=== PATIENT | female | born 1970 | race Caucasian/White ===

== ENCOUNTER 2016-12-21 18:17 | Emergency (ER) | payer OTHER ==
[2016-12-21 18:42] VITALS: BMI 29.6
[2016-12-21] MEDS ORDERED: SODIUM CHLORIDE 1,000 ML IV STA (20:48)
[2016-12-21] MEDS ORDERED: PANTOPRAZOLE SODIUM 40 MG in SODIUM CHLORIDE 100 ML IVPB ONE (20:48)
[2016-12-21] MEDS ORDERED: ONDANSETRON 4 MG/2 ML VIAL IVPUSH ONE (20:48)
[2016-12-21] MEDS ORDERED: FAMOTIDINE 20 MG/50 ML IVPB 50 ML IVPB ONE ×2 (20:48→21:37)
[2016-12-21 21:03] LABS: URINE APPEARANCE TURBID; URINE BILIRUBIN NEGATIVE (NEGATIVE); URINE COLOR YELLOW; URINE GLUCOSE (UA) NEGATIVE (NEGATIVE); URINE KETONE NEGATIVE (NEGATIVE); URINE LEUK ESTERASE NEGATIVE (NEGATIVE); URINE NITRITE NEGATIVE (NEGATIVE); URINE PROTEIN NEGATIVE (NEGATIVE); URINE UROBILINOGEN NEGATIVE E.U./dl (0.2-1.0)
[2016-12-21 21:04] LABS: BASOPHIL 0.4 % (0-2.0); EOSINOPHIL 0.4 % (0-4.5); MCH 27.9 pg (25.7-33.7); MCHC 32.6 g/dl (32.0-36.0); MEAN CELL VOLUME 85.7 fl (80-96); MEAN PLT VOLUME 8.1 fl (7.5-11.1); NEUTROPHILS 65.3 % (42.8-82.8); PLATELET COUNT 318 K/MM3 (134-434); WHITE BLOOD COUNT 8.1 K/mm3 (4.0-10.0)
[2016-12-21 21:06] LABS: URINE BLOOD 1+ (NEGATIVE)
[2016-12-21 21:11] LABS: URINE BACTERIA RARE /hpf (NONE SEEN); URINE MUCUS MANY; URINE WBC 46 /hpf (3-5); YEAST MODERATE
[2016-12-21] MEDS ORDERED: PANTOPRAZOLE SODIUM 100 ML IVPB ONE (21:15)
[2016-12-21] MEDS ORDERED: ONDANSETRON 4 MG/2 ML VIAL ONE (21:15)
[2016-12-21 21:27] LABS: ALBUMIN 3.7 g/dl (3.4-5.0); AMYLASE 40 U/L (25-115); ANION GAP 6 (8-16); BILIRUBIN,TOTAL 0.6 mg/dL (0.2-1.0); CALCIUM 8.2 mg/dL (8.5-10.1); CO2 27 mmol/L (21-32); COCKROFT - GAULT 100.2405; GLUCOSE,RANDOM 118 mg/dL (74-106); SGOT/AST 24 U/L (15-37); SGPT/ALT 34 U/L (12-78)
[2016-12-21 21:31] LABS: ALK PHOS 68 U/L (45-117); TOT PROT 7.4 g/dl (6.4-8.2); TROPONIN I < 0.02 ng/ml (0.00-0.05)
--- NOTE | 2016-12-21 22:44 | PDOC ---
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 Patient denies fever, hematemesis, or recent alcohol use. LNMP: 4 weeks ago. Denies any other complaints at this time. Patient reports excessive Ibuprofen use for abd pain. Timing/Duration: reports: getting worse Quality: reports: moderate Abdominal Pain Onset Location: reports: epigastric Pain Radiation: reports: no radiation Activities at Onset: reports: no specific activity Past History - Travel Traveled outside of the country in the last 30 days: No Close contact w/someone who was outside of country & ill: No - Past Medical History Allergies/Adverse Reactions: Allergies Allergy/AdvReac Type Severity Reaction Status Date / Time Penicillins Allergy Rash Verified 12/21/16 18:39 Home Medications: Ambulatory Orders Diphenoxylate HCl/Atropine [Lomotil Tablet] 2 each PO QID PRN #8 tablet MDD 8 tabs 12/21/16 Famotidine [Pepcid -] 40 mg PO BID #14 tablet 12/21/16 Ondansetron [Zofran Odt -] 4 mg SL Q6H PRN #20 od.tablet 12/21/16 Oxycodone HCl/Acetaminophen [Oxycodone-Acetaminophen 5-325] 1 each PO Q6H PRN # 16 tablet MDD 4 tabs 12/21/16 Anemia: Yes Asthma: No GI Disorders: Yes (HERNIA, ACID REFLUX) Psychiatric Problems: Yes (ANXIETY.) - Reproductive History Is Patient Now?: No - Psycho/Social/Smoking Cessation Hx Anxiety: Yes Suicidal Ideation: No Smoking History: Never smoked Hx Alcohol Use: No Drug/Substance Use Hx: No Substance Use Type: None Abd/GI Specific PMHX - Complaint Specific PMHX Colitis: No Diverticulitis: No Gall Bladder Disease: No GERD: No Hepatitis: No Irritable Bowel Synd (IBS): No Pancreatitis: No GI Ulcer Disease: No Review of Systems - Review of Systems Able to Perform ROS?: Yes Is the patient limited Ukrainian proficient: No Constitutional: Yes: Chills. No: Fever Respiratory: No: Cough, Shortness of Breath, Stridor, Wheezing Cardiac (ROS): No: Chest Pain, Palpitations, Syncope, Chest Tightness ABD/GI: Yes: Diarrhea, Nausea, Poor Fluid Intake, Vomiting, Indigestion, Other ( Abdominal Pain). No: Constipated, Poor Appetite : No: Dysuria, Flank Pain, Hematuria Musculoskeletal: No: Back Pain Integumentary: No: Bruising, Erythema, Rash Neurological: No: Headache, Seizure, Dizziness All Other Systems: Reviewed and Negative *Physical Exam - Vital Signs Last Vital Signs Temp Pulse Resp BP Pulse Ox 98.5 F 84 19 128/78 97 12/21/16 18:39 12/21/16 18:39 12/21/16 18:39 12/21/16 18:39 12/21/16 18:39 - Physical Exam General Appearance: Yes: Nourished, Appropriately Dressed, Moderate Distress. No: Apparent Distress, Mild Distress, Severe Distress Neck: positive: Trachea midline, Supple. negative: Tender, Rigid, Lymphadenopathy (R), Lymphadenopathy (L) Respiratory/Chest: positive: Lungs Clear, Normal Breath Sounds. negative: Chest Tender, Respiratory Distress, Accessory Muscle Use, Labored Respiration, Rapid RR Cardiovascular: positive: Regular Rhythm, Regular Rate Gastrointestinal/Abdominal: positive: Tender (Epigastric region), Soft, Decreased BS, Guarding, Rebound, Tenderness. negative: Distended Musculoskeletal: positive: Normal Inspection. negative: CVA Tenderness, Vertebral Tenderness Extremity: positive: Normal Capillary Refill, Normal Inspection, Normal Range of Motion. negative: Pedal Edema, Swelling, Calf Tenderness, Erythema, Inflammation Integumentary: positive: Normal Color, Dry, Warm Neurologic: positive: infantry operations specialist II-XII NML intact, Fully Oriented, Alert, Normal Mood/ Affect, Normal Response, Motor Strength 12/23 ED Treatment Course - LABORATORY CBC & Chemistry Diagram: 12/21/16 20:40 12/21/16 20:40 - ADDITIONAL ORDERS Additional order review: Laboratory Results 12/21/16 12/21/16 20:55 20:40 Sodium 138 Potassium 4.5 Chloride 105 Carbon Dioxide 27 Anion Gap 6 L BUN 13 Creatinine 1.0 D Creat Clearance w eGFR > 60 Random Glucose 118 H Calcium 8.2 L Total Bilirubin 0.6 AST 24 D ALT 34 Alkaline Phosphatase 68 Creatine Kinase 252 H CK-MB (CK-2) < 1.000 Troponin I < 0.02 Total Protein 7.4 Albumin 3.7 Total Amylase 40 D Lipase 102 Urine Color Yellow Urine Appearance Turbid Urine pH 5.0 Ur Specific [place] Urine Protein Negative Urine Glucose (UA) Negative Urine Ketones Negative Urine Blood 1+ H Urine Nitrite Negative Urine Bilirubin Negative Urine Urobilinogen Negative Ur Leukocyte Esterase Negative Urine RBC None Urine WBC 46 Ur Epithelial Cells Few Urine Bacteria Rare Urine Mucus Many Urine Yeast Moderate Urine HCG, Qual Negative 12/21/16 20:40 RBC 4.86 MCV 85.7 MCHC 32.6 RDW 15.0 MPV 8.1 Neutrophils % 65.3 Lymphocytes % 23.9 Monocytes % 10.0 Eosinophils % 0.4 Basophils % 0.4 - RADIOLOGY Radiology Studies Ordered: Category Date Time Status CHEST PA & LAT [RAD] Stat Radiology 12/21/16 20:48 Ordered ABDOMEN US -LIMITED [US] Stat Ultrasound 12/21/16 20:48 Taken - Medications Given in the ED: ED Medications Discontinued Medications Generic Name Dose Route Start Last Admin Trade Name Freq PRN Reason Stop Dose Admin Pantoprazole Sodium 40 mg/ 100 mls @ 200 mls/hr 12/21/16 20:48 12/21/16 21:16 Sodium Chloride IVPB 12/21/16 21:17 200 mls/hr ONCE ONE Administration Famotidine/Sodium Chloride 50 mls @ 100 mls/hr 12/21/16 20:48 12/21/16 21:43 Pepcid 20 Mg Premixed Ivpb - IVPB 12/21/16 21:17 100 mls/hr ONCE ONE Administration Sodium Chloride 1,000 mls @ 1,000 mls/hr 12/21/16 20:48 12/21/16 21:15 Normal Saline - IV 12/21/16 21:47 1,000 mls/hr ASDIR STA Administration Ondansetron HCl 4 mg 12/21/16 20:48 12/21/16 21:16 Zofran Injection IVPUSH 12/21/16 20:49 4 mg ONCE ONE Administration *DC/Admit/Observation/Transfer Diagnosis at time of Disposition: Gastritis Qualifiers: Gastritis type: unspecified gastritis Chronicity: acute Gastritis bleeding: without bleeding Qualified Code(s): K29.00 - Acute gastritis without bleeding - Discharge Dispostion Disposition: HOME Condition at time of disposition: Improved Admit: No - Prescriptions Prescriptions: Diphenoxylate HCl/Atropine [Lomotil Tablet] 2 each PO QID PRN #8 tablet MDD 8 tabs PRN Reason: Diarrhea Oxycodone HCl/Acetaminophen [Oxycodone-Acetaminophen 5-325] 1 each PO Q6H PRN # 16 tablet MDD 4 tabs PRN Reason: Severe Pain Famotidine [Pepcid -] 40 mg PO BID #14 tablet Ondansetron [Zofran Odt -] 4 mg SL Q6H PRN #20 od.tablet PRN Reason: Nausea And/Or Vomiting - Referrals Referrals: Micheline Suarez MD [Primary Care Provider] - Leonid Knight MD [Staff Physician] - - Patient Instructions Printed Discharge Instructions: Gastritis (Alternative Therapy), DI for Gastritis Additional Instructions: FOLLOW UP WITH DR. KNIGHT (GASTROENTEROLOGY) THIS WEEK. CALL TO SCHEDULE APPOINTMENT. TAKE MEDICATIONS PRESCRIBED. DO NOT DRIVE, DRINK ALCOHOL, OR OPERATE HEAVY MACHINERY WHILE TAKING OXYCODONE. AVOID IBUPROFEN/MOTRIN, ALCOHOL , SPICY FOODS, CHOCOLATE. RETURN IF SYMPTOMS WORSEN OR ANY CONCERNS FOR FURTHER EVALUATION. Print Language: CZECH - Post Discharge Activity Work/School Note: Back to Work
[2016-12-21] MEDS ORDERED: DIPHENOXYLATE 2.5/ATROPINE.025 1 COMBO TABLET PO ONE (23:15)
[2016-12-21] MEDS ORDERED: DIPHENOXYLATE 2.5/ATROPINE.025 1 COMBO TABLET ONE (23:22)
[2016-12-21 23:31] VITALS: BP 123/82; PULSE 91; TEMP 98.2
== END 2016-12-21 23:33 | disposition home or self-care (01) ==
LOC: JER 18:17
PROC: 3E033GC Introduction of Other Therapeutic Substance into Peripheral Vein, Percutaneous Approach (ICD-10-PCS; principal; 2016-12-21)
PROC: 3E033GC Introduction of Other Therapeutic Substance into Peripheral Vein, Percutaneous Approach (ICD-10-PCS; 2016-12-21)
PROC: 3E033GC Introduction of Other Therapeutic Substance into Peripheral Vein, Percutaneous Approach (ICD-10-PCS; 2016-12-21)
DX: K29.00 Acute gastritis without bleeding (principal)
CPT/HCPCS: 36415; 71020-TC; 76705-TC; 80053; 81003; 81015; 82150; 82550; 82553; 83690; 84484; 84703; 85025; 96365; 96368; 96375; 99283-25

== ENCOUNTER 2017-05-03 20:28 | Emergency (ER) | payer OTHER ==
[2017-05-03 20:40] VITALS: BP 121/78; PULSE 73; TEMP 97.1; BMI 30.7
--- NOTE | 2017-05-03 21:14 | PDOC ---
History of Present Illness - General Chief Complaint: Laceration Stated Complaint: LACERATION Time Seen by Provider: 05/03/17 20:33 History Source: Patient Exam Limitations: No Limitations - History of Present Illness Initial Comments: 05/03/17 21:37 46-year-old female presents to the emergency department complaining of an abrasion to the left lateral temporal forehead after walking into a pole this afternoon. Patient states she was preoccupied looking towards her right when she walked into a pole, striking the left side of her face. She denies any loss of consciousness, headache, dizziness, lightheadedness, visual disturbance, neck /back pains. Patient only complains of pain to the left supra periorbital rim. Patient denies any other complaints. Unknown last tetanus. Occurred: reports: this evening Past History - Past Medical History Allergies/Adverse Reactions: Allergies Allergy/AdvReac Type Severity Reaction Status Date / Time Penicillins Allergy Rash Verified 05/03/17 20:38 Home Medications: Ambulatory Orders Diphenoxylate HCl/Atropine [Lomotil Tablet] 2 each PO QID PRN #8 tablet MDD 8 tabs 12/21/16 Famotidine [Pepcid -] 40 mg PO BID #14 tablet 12/21/16 Ondansetron [Zofran Odt -] 4 mg SL Q6H PRN #20 od.tablet 12/21/16 Oxycodone HCl/Acetaminophen [Oxycodone-Acetaminophen 5-325] 1 each PO Q6H PRN # 16 tablet MDD 4 tabs 12/21/16 Anemia: Yes Asthma: No GI Disorders: Yes (HERNIA, ACID REFLUX) Psychiatric Problems: Yes (ANXIETY.) - Psycho/Social/Smoking Cessation Hx Anxiety: Yes Suicidal Ideation: No Smoking History: Never smoked Have you smoked in the past 12 months: No Information on smoking cessation initiated: No Hx Alcohol Use: No Drug/Substance Use Hx: No Substance Use Type: None Trauma Specific PMHX - Complaint Specific PMHX Back Injury: Yes Review of Systems - Review of Systems Able to Perform ROS?: Yes Comments:: 05/03/17 21:38 CONSTITUTIONAL: Absent: fever, chills, diaphoresis, generalized weakness, malaise, loss of appetite HEENT: Absent: rhinorrhea, nasal congestion, throat pain, throat swelling, difficulty swallowing, mouth swelling, ear pain, eye pain, visual Changes CARDIOVASCULAR: Absent: chest pain, loss of consciousness, palpitations, irregular heart rate, peripheral edema RESPIRATORY: Absent: cough, shortness of breath, dyspnea with exertion, orthopnea, wheezing, stridor, hemoptysis GASTROINTESTINAL: Absent: abdominal pain, abdominal distension, nausea, vomiting, diarrhea, constipation, melena, hematochezia GENITOURINARY: Absent: dysuria, frequency, urgency, hesitancy, hematuria, flank pain, genital pain MUSCULOSKELETAL: Absent: myalgia, arthralgia, joint swelling SKIN: left facial abrasion Absent: rash, itching, pallor HEMATOLOGIC/IMMUNOLOGIC: Absent: easy bleeding, easy bruising, lymphadenopathy, frequent infections ENDOCRINE: Absent: unexplained weight gain, unexplained weight loss, heat intolerance, cold intolerance NEUROLOGIC: Absent: headache, focal weakness or paresthesias, dizziness, unsteady gait, seizure, mental status changes, bladder or bowel incontinence PSYCHIATRIC: Absent: anxiety, depression, suicidal or homicidal ideation, hallucinations. Is the patient limited Singaporean proficient: No *Physical Exam - Vital Signs Last Vital Signs Temp Pulse Resp BP Pulse Ox 97.1 F L 73 20 121/78 98 05/03/17 20:38 05/03/17 20:38 05/03/17 20:38 05/03/17 20:38 05/03/17 20:38 - Physical Exam Comments: 05/03/17 21:38 GENERAL: Well developed, well nourished. Awake and alert. No acute distress. HEENT: left supraorbital tenderness on palp/edema Normocephalic, atraumatic. PERRLA, EOMI. No conjunctival pallor. Sclera are non- icteric. Moist mucous membranes. Oropharynx is clear. NECK: Supple. Full ROM. No JVD. Carotid pulses 2+ and symmetric, without bruits. No thyromegaly. No lymphadenopathy. CARDIOVASCULAR: Regular rate and rhythm. No murmurs, rubs, or gallops. Distal pulses are 2+ and symmetric. PULMONARY: No evidence of respiratory distress. Lungs clear to auscultation bilaterally. No wheezing, rales or rhonchi. ABDOMINAL: Soft. Non-tender. Non-distended. No rebound or guarding. No organomegaly. Normoactive bowel sounds. MUSCULOSKELETAL Normal range of motion at all joints. No bony deformities or tenderness. No CVA tenderness. EXTREMITIES: No cyanosis. No clubbing. No edema. No calf tenderness. SKIN: superficial 2cm horizontal facial abrasion to left sided lat facial; 1cm lat from left eye Warm and dry. Normal capillary refill. No rashes. No jaundice. NEUROLOGICAL: Alert, awake, appropriate. Cranial nerves 2-12 intact. No deficits to light touch and temperature in face, upper extremities and lower extremities. No motor deficits in the in face, upper extremities and lower extremities. Normoreflexic in the upper and lower extremities. Normal speech. Toes are down- going bilaterally. Gait is normal without ataxia. PSYCHIATRIC: Cooperative. Good eye contact. Appropriate mood and affect. Left eye: 20/20 Right eye: 2030 B/L eyes: 20/20 ED Treatment Course - RADIOLOGY Radiograph Interpretation: 05/03/17 22:51 Left periorbital/supraorbital edema *DC/Admit/Observation/Transfer Diagnosis at time of Disposition: Abrasion Periorbital contusion of left eye Qualifiers: Encounter type: initial encounter Qualified Code(s): S05.12XA - Contusion of eyeball and orbital tissues, left eye, initial encounter - Discharge Dispostion Condition at time of disposition: Stable Admit: No - Referrals Referrals: Micheline Suarez MD [Primary Care Provider] - Sony Foley MD [Staff Physician] - - Patient Instructions Printed Discharge Instructions: DI for Contusion, DI for Abrasion Additional Instructions: Ice; 10 mins on alternating with 10 mins off for the next 48 hours Tylenol alternating with motrin as needed for pain Bactracin to the abrasion daily Follow up with your physician and or the plastic surgeon listed on your discharge/Dr. Foley. Return to the ER for severe/persistent/worsening symptoms - Post Discharge Activity Work/School Note: Back to Work
[2017-05-03] MEDS ORDERED: TETANUS AND DIPHTHERIA TOXOID 0.5 ML DISP.SYRIN IM ONE (21:38)
--- NOTE | 2017-05-03 22:50 | PDOC ---
*Physical Exam - Vital Signs Last Vital Signs Temp Pulse Resp BP Pulse Ox 97.1 F L 73 20 121/78 98 05/03/17 20:38 05/03/17 20:38 05/03/17 20:38 05/03/17 20:38 05/03/17 20:38 ED Treatment Course - ADDITIONAL ORDERS Additional order review: Laboratory Results 05/03/17 21:17 Urine HCG, Qual Negative - Medications Given in the ED: ED Medications Discontinued Medications Generic Name Dose Route Start Last Admin Trade Name Freq PRN Reason Stop Dose Admin Tetanus/Diphtheria Toxoids Adsorbed 0.5 ml 05/03/17 21:38 05/03/17 22:40 Decavac IM 05/03/17 21:39 0.5 ml .ONCE ONE Administration Medical Decision Making - Medical Decision Making 05/03/17 22:50 agree with care from JOSE F Lweis *DC/Admit/Observation/Transfer Diagnosis at time of Disposition: Abrasion Periorbital contusion of left eye Qualifiers: Encounter type: initial encounter Qualified Code(s): S05.12XA - Contusion of eyeball and orbital tissues, left eye, initial encounter - Discharge Dispostion Condition at time of disposition: Stable - Referrals Referrals: Sony Foley MD [Staff Physician] - Micheline Suarez MD [Primary Care Provider] - - Patient Instructions Printed Discharge Instructions: DI for Contusion, DI for Abrasion Additional Instructions: Ice; 10 mins on alternating with 10 mins off for the next 48 hours Tylenol alternating with motrin as needed for pain Bactracin to the abrasion daily Follow up with your physician and or the plastic surgeon listed on your discharge/Dr. Foley. Return to the ER for severe/persistent/worsening symptoms - Post Discharge Activity
[2017-05-03] MEDS ORDERED: IBUPROFEN 400 MG TABLET (FP) PO ONE ×2 (22:56→22:58)
== END 2017-05-03 23:06 | disposition home or self-care (01) ==
LOC: JER 20:28
PROC: 3E0234Z Introduction of Serum, Toxoid and Vaccine into Muscle, Percutaneous Approach (ICD-10-PCS; principal; 2017-05-03)
DX: S05.12XA Contusion of eyeball and orbital tissues, left eye, initial encounter (principal); S00.211A Abrasion of right eyelid and periocular area, initial encounter; W22.09XA Striking against other stationary object, initial encounter; Y93.01 Activity, walking, marching and hiking; Y92.89 Other specified places as the place of occurrence of the external cause; Y99.8 Other external cause status
CPT/HCPCS: 70480-TC; 84703; 99282-25

== ENCOUNTER 2019-03-28 14:37 | Emergency (ER) | payer OTHER ==
[2019-03-28 14:44] VITALS: BP 127/78; PULSE 76; BMI 29.0
--- NOTE | 2019-03-28 14:46 | PDOC ---
Rapid Medical Evaluation Time Seen by Provider: 03/28/19 14:42 Medical Evaluation: Allergies Allergy/AdvReac Type Severity Reaction Status Date / Time Penicillins Allergy Rash Verified 03/28/19 14:39 03/28/19 14:42 Pt presents to the ER with PMH of blindness with two days of experiencing " sharp pains" to the L side of her head. She states that it is not a headache. States that the pain comes suddenly, lasts approximately one minute and then disappears. Exam: no gross neuro deficits, NAD Orders: labs, urine Pt to proceed to the ER for further evaluation Discharge Disposition - Diagnosis Head pain - Referrals - Patient Instructions - Post Discharge Activity
[2019-03-28 14:50] VITALS: TEMP 98
[2019-03-28 16:54] LABS: BASO % 0.4 % (0-2.0); EOS % 0.6 % (0-4.5); HEMATOCRIT 39.8 % (32.4-45.2); HEMOGLOBIN 13.2 GM/dL (10.7-15.3); LYMPH % 37.1 % (8-40); MCH 28.8 pg (25.7-33.7); MCHC 33.1 g/dl (32.0-36.0); MEAN CELL VOLUME 87.1 fl (80-96); MEAN PLT VOLUME 8.3 fl (7.5-11.1); MONO % 10.2 % (3.8-10.2); NEUT % 51.7 % (42.8-82.8); PLATELET COUNT 271 K/MM3 (134-434); RBC 4.57 M/mm3 (3.60-5.2)
[2019-03-28 16:59] LABS: PH,URINE 5.5 (5.0-8.0); URINE APPEARANCE CLEAR; URINE BILIRUBIN NEGATIVE (NEGATIVE); URINE COLOR YELLOW; URINE GLUCOSE (UA) NEGATIVE (NEGATIVE); URINE KETONE NEGATIVE (NEGATIVE); URINE LEUK ESTERASE NEGATIVE (NEGATIVE); URINE NITRITE NEGATIVE (NEGATIVE); URINE PROTEIN NEGATIVE (NEGATIVE); URINE UROBILINOGEN 0.2 mg/dL (0.2-1.0)
--- NOTE | 2019-03-28 17:08 | PDOC ---
History of Present Illness - General Chief Complaint: Headache Stated Complaint: HEADACHE Time Seen by Provider: 03/28/19 14:42 - History of Present Illness Initial Comments: 03/28/19 17:04 CHIEF COMPLAINT: head/neck pain HISTORY OF PRESENT ILLNESS: 48 yo F with hx of legal blindness, migraines, and chronic neck/back pain presents to ED with radiating neck and head pain x 2 days. Patient states the pain began when she was working at her register as a cashier office and felt a sharp pain radiating from her neck to top of her head on L side. She reports an extensive hx of migraines and states this pain is different from her migraines. She states the pain is intermittent and is describes it as a shooting pain. Patient and sister mention that she has had chronic pain to L neck x "months." Patient has seen orthopedics in the past for her neck but does not believe a CT or MRI has been done. Tavon has not taken any medication for VALENZUELA or neck pain in the past. Orthopedic had given her painkillers but "I think they " so she has not taken anything for pain. No recent travel or sick contacts. PAST MEDICAL HISTORY: Denies past medical history FAMILY HISTORY: Denies Denies tobacco, alcohol, illicit drug use. SURGICAL HISTORY: Denies ALLERGIES: cyclobenzaprine, PCN REVIEW OF SYSTEMS General/Constitutional: Denies fever or chills. Denies weakness, weight change. HEENT: Denies change in vision. Denies ear pain or discharge. Denies sore throat. Cardiovascular: Denies chest pain or shortness of breath. Respiratory: Denies cough, wheezing, or hemoptysis. Gastrointestinal: Denies nausea, vomiting, diarrhea or constipation. Denies rectal bleeding. Genitourinary: Denies dysuria, frequency, or change in urination. Musculoskeletal: Chronic neck and back pain. Denies joint or muscle swelling or pain. Skin and breasts: Denies rash or easy bruising. Neurologic: Shooting L sided headache. Denies vertigo, loss of consciousness, or loss of sensation. PHYSICAL EXAM General Appearance: Well-appearing, appropriately dressed. No apparent distress. HEENT: EOMI, PERRLA, normal ENT inspection, normal voice, TMs normal, pharynx normal. No conjunctival pallor. No photophobia, scleral icterus. Neck: Supple. Trachea midline. No tenderness, rigidity, carotid bruit, stridor , lymphadenopathy, or thyromegaly. Respiratory/Chest: Lungs CTAB. No shortness of breath, chest tenderness, respiratory distress, accessory muscle use. No crackles, rales, rhonchi, stridor , wheezing, dullness Cardiovascular: RRR. S1, S2. No JVD, murmur, bradycardia, tachycardia. Vascular Pulses: Dorsalis-Pedis (R): 2+, Dorsalis-Pedis (L): 2+ Gastrointestinal/Abdominal: Normal bowel sounds. Abdomen soft, non-distended. No tenderness or rebound tenderness. No organomegaly, pulsatile mass, guarding , hernia, hepatomegaly, splenomegaly. Lymphatic: No adenopathy, tenderness. Musculoskeletal/Extremities: Normal inspection. FROM of all extremities, normal capillary refill. Pelvis Stable. No CVA tenderness. No tenderness to extremities, pedal edema, swelling, erythema or deformity. Integumentary: Appropriate color, dry, warm. No cyanosis, erythema, jaundice or rash Neurologic: assembler molded frames II-XII intact. Fully oriented, alert. Appropriate mood/affect. Motor strength 5/5. No appreciable EOM palsy, facial droop or sensory deficit. Past History - Past Medical History Allergies/Adverse Reactions: Allergies Allergy/AdvReac Type Severity Reaction Status Date / Time Penicillins Allergy Rash Verified 03/28/19 14:39 Home Medications: Ambulatory Orders NK [No Known Home Medication] 05/03/17 Anemia: Yes Asthma: No COPD: No Diabetes: Yes GI Disorders: Yes (HERNIA, ACID REFLUX) Psychiatric Problems: Yes (ANXIETY.) Other medical history: legally blind in both eyes - Suicide/Smoking/Psychosocial Hx Smoking History: Never smoked Have you smoked in the past 12 months: No Hx Alcohol Use: Yes (occasionally) Drug/Substance Use Hx: No Substance Use Type: None *Physical Exam - Vital Signs Last Vital Signs Temp Pulse Resp BP Pulse Ox 98 F 76 18 127/78 100 03/28/19 14:39 03/28/19 14:39 03/28/19 14:39 03/28/19 14:39 03/28/19 14:39 ED Treatment Course - LABORATORY CBC & Chemistry Diagram: 03/28/19 16:45 03/28/19 16:45 - ADDITIONAL ORDERS Additional order review: Laboratory Results 03/28/19 03/28/19 16:45 16:45 Urine Color Yellow Urine Appearance Clear Urine pH 5.5 Ur Specific [place] 1.013 Urine Protein Negative Urine Glucose (UA) Negative Urine Ketones Negative Urine Blood Negative Urine Nitrite Negative Urine Bilirubin Negative Urine Urobilinogen 0.2 Ur Leukocyte Esterase Negative Urine HCG, Qual Negative 03/28/19 16:45 RBC 4.57 MCV 87.1 MCHC 33.1 RDW 14.0 MPV 8.3 Neutrophils % 51.7 D Lymphocytes % 37.1 D Monocytes % 10.2 Eosinophils % 0.6 Basophils % 0.4 Medical Decision Making - Medical Decision Making 03/28/19 19:20 48 yo F with hx of legal blindness, migraines, and chronic neck/back pain presents to ED with radiating neck and head pain x 2 days. -labs -head/neck CT C-spine CT indicates marked right and mild left facet hypertrophy at C2-C3, moderate left facet hypertrophy at C3-C4, mild right facet hypertrophy at C4-C5 , mild b/l facet hypertrophy at C5-C6 level. C5-C6 mild central disc bulge without gross impingement. Pt allergic to cyclobenzaprine - reports anaphylactic reaction. -tinazidine *DC/Admit/Observation/Transfer Diagnosis at time of Disposition: Facet hypertrophy of cervical region, Bulging of cervical intervertebral disc - Discharge Dispostion Disposition: HOME Condition at time of disposition: Stable Decision to Admit order: No - Referrals Referrals: Joe Juarez MD [Staff Physician] - Italo Mejia DO [Staff Physician] - Orville Barnes MD [Staff Physician] - - Patient Instructions Printed Discharge Instructions: DI for Cervical Radiculopathy, DI for Neck Pain Additional Instructions: Please follow up with orthopedics and neurology for continued management of your neck and head pain. If you develop any worsening headache, difficulty speaking or walking, new neck pain, or any new or worsening symptoms, please return to the ER immediately. - Post Discharge Activity
[2019-03-28 17:23] LABS: ALBUMIN 3.7 g/dl (3.4-5.0); BILIRUBIN,TOTAL 0.7 mg/dL (0.2-1); BLOOD UREA NITROGEN 14.6 mg/dL (7-18); CALCIUM 9.3 mg/dL (8.5-10.1); CREATININE 0.9 mg/dL (0.55-1.3); POTASSIUM 4.6 mmol/L (3.5-5.1); TOT PROT 7.2 g/dl (6.4-8.2)
[2019-03-28] MEDS ORDERED: TIZANIDINE HCL 2 MG TABLET PO ONE (19:24)
[2019-03-28] MEDS ORDERED: diphenhydrAMINE HCL 25 MG CAPSULE (FP) PO ONE ×2 (19:25→19:30)
== END 2019-03-28 20:35 | disposition home or self-care (01) ==
LOC: JER 14:37
DX: R51 Headache (principal); G89.29 Other chronic pain; F41.9 Anxiety disorder, unspecified; H54.8 Legal blindness, as defined in USA; K21.9 Gastro-esophageal reflux disease without esophagitis; E11.9 Type 2 diabetes mellitus without complications
CPT/HCPCS: 36415; 70450-TC; 72125-TC; 80053; 81003; 84703; 85025; 99282-25

== ENCOUNTER 2023-05-26 23:17 | Emergency (ER) | payer OTHER ==
[2023-05-26 23:39] VITALS: BP 128/77; PULSE 56; RESP 20; TEMP 97.8; BMI 25.5
[2023-05-27] MEDS ORDERED: ACETAMINOPHEN 1000 MG/100 ML BAG IVPB ONE (00:17)
[2023-05-27] MEDS ORDERED: ACETAMINOPHEN INJECTION 100 ML IVPB ONE (00:29)
[2023-05-27 00:33] LABS: BASO % 0.6 % (0-2.0); EOS % 1.2 % (0-4.5); HEMATOCRIT 35.6 % (32.4-45.2); HEMOGLOBIN 12.2 GM/dL (10.7-15.3); LYMPH % 36.1 % (8-40); MCH 28.8 pg (25.7-33.7); MCHC 34.1 g/dl (32.0-36.0); MEAN CELL VOLUME 84.4 fl (80-96); MEAN PLT VOLUME 7.8 fl (7.5-11.1); MONO % 9.3 % (3.8-10.2); NEUT % 52.8 % (42.8-82.8); PLATELET COUNT 260 10^3/uL (134-434); RBC 4.22 M/mm3 (3.60-5.2); RDW 14.3 % (11.6-15.6); WHITE BLOOD COUNT 8.2 K/mm3 (4.0-10.0)
[2023-05-27 00:41] LABS: INR 0.91 (0.83-1.09); PROTHROMBIN TIME (PATIENT) 10.6 SEC (9.7-13.0)
[2023-05-27 00:43] LABS: ACTIVATED PTT 32.2 SECONDS (25.2-36.5)
[2023-05-27 01:08] LABS: POTASSIUM 4.1 mmol/L (3.5-5.1)
[2023-05-27 01:10] LABS: BLOOD UREA NITROGEN 22.6 mg/dL (7-18); CALCIUM 8.4 mg/dL (8.5-10.1)
[2023-05-27 01:11] LABS: ALBUMIN 3.2 g/dl (3.4-5.0)
[2023-05-27 01:14] LABS: CREATININE 0.8 mg/dL (0.55-1.3)
[2023-05-27 01:15] LABS: BILIRUBIN,TOTAL 0.3 mg/dL (0.2-1); TOT PROT 6.4 g/dl (6.4-8.2)
[2023-05-27] MEDS ORDERED: KETOROLAC TROMETHAMINE 15 MG/ML VIAL IVPUSH ONE (03:13)
[2023-05-27] MEDS ORDERED: KETOROLAC TROMETHAMINE 15 MG/ML VIAL ONE (03:35)
== END 2023-05-27 04:17 | disposition home or self-care (01) ==
LOC: JER 23:17
PROC: 3E033NZ Introduction of Analgesics, Hypnotics, Sedatives into Peripheral Vein, Percutaneous Approach (ICD-10-PCS; principal; 2023-05-27)
PROC: 3E0333Z Introduction of Anti-inflammatory into Peripheral Vein, Percutaneous Approach (ICD-10-PCS; 2023-05-27)
DX: R07.9 Chest pain, unspecified (principal); R20.2 Paresthesia of skin
CPT/HCPCS: 36415; 71045-TC-FY; 80053; 84484; 85025; 85610; 85730; 93005; 93010; 99285-25

== ENCOUNTER 2023-06-12 13:15 | Emergency (ER) | payer OTHER ==
[2023-06-12 13:28] VITALS: BP 119/72; PULSE 73; RESP 16; TEMP 98.4; BMI 25.5
[2023-06-12] MEDS ORDERED: ACETAMINOPHEN 500 MG TABLET (FP) PO ONE (14:03)
[2023-06-12] MEDS ORDERED: ACETAMINOPHEN 325 MG TABLET (FP) ONE (16:00)
[2023-06-12] MEDS ORDERED: KETOROLAC TROMETHAMINE 30 MG/1 ML VIAL IM ONE (16:52)
[2023-06-12] MEDS ORDERED: KETOROLAC TROMETHAMINE 30 MG/1 ML VIAL ONE (17:21)
== END 2023-06-12 17:52 | disposition home or self-care (01) ==
LOC: JER 13:15
PROC: 3E0233Z Introduction of Anti-inflammatory into Muscle, Percutaneous Approach (ICD-10-PCS; principal; 2023-06-12)
DX: M25.512 Pain in left shoulder (principal); M25.522 Pain in left elbow; M54.6 Pain in thoracic spine; R51.9 Headache, unspecified; R11.0 Nausea; M54.2 Cervicalgia; W10.8XXA Fall (on) (from) other stairs and steps, initial encounter
CPT/HCPCS: 70450-TC; 71045-TC-FY; 72125-TC; 73030-TC-LT-FY; 73060-TC-LT-FY; 73070-TC-LT-FY; 76604; 76705-TC; 82962; 93308; 99285-25